=== PATIENT | female | born 1975 | race Caucasian/White ===

== ENCOUNTER 2024-02-11 18:33 | Outpatient (CLI) | payer SELFPAY | END 2024-02-11 23:59 | disposition critical access hospital (66) | LOC: EMS 18:33 | DX: E11.649 Type 2 diabetes mellitus with hypoglycemia without coma (principal) | CPT/HCPCS: A0425; A0429 ==

== ENCOUNTER 2024-02-11 18:48 | Observation (INO) | payer SELFPAY ==
[2024-02-11 19:33] LABS: BASOPHILS # (AUTO) 0.1 10^3/uL (0.0-0.1); EOSINOPHILS # (AUTO) 0.1 10^3/uL (0.0-0.7); HCT - HEMATOCRIT 47.4 % (37.0-47.0); HGB - HEMOGLOBIN 15.2 g/dL (12.0-16.0); LYMPHOCYTES # (AUTO) 1.2 10^3/uL (1.5-3.5); LYMPHOCYTES % (AUTO) 22.8 %; MEAN CORPUSCULAR HEMOGLOBIN 31.1 pg (27.0-31.0); MEAN CORPUSCULAR HGB CONC 32.1 g/dL (32.0-36.0); MEAN CORPUSCULAR VOLUME 97.1 fL (81.0-99.0); MEAN PLATELET VOLUME 10.4 fL (7.9-10.8); MONOCYTES # (AUTO) 0.3 10^3/uL (0.0-1.0); MONOCYTES % (AUTO) 5.9 %; NEUTROPHILS # (AUTO) 3.5 10^3/uL (1.5-6.6); NEUTROPHILS % (AUTO) 68.9 %; PLT - PLATELET COUNT 193 10^3/uL (130-450); RED BLOOD COUNT 4.88 10^6/uL (4.20-5.40); RED CELL DISTRIBUTION WIDTH 12.4 % (12.0-15.0); WHITE BLOOD COUNT 5.1 x10^3/uL (4.8-10.8)
--- NOTE | 2024-02-11 19:44 | ED Physician Documentation ---
History of Present Illness - Stated complaint Stated Complaint: LOW BLOOD SUGAR - Chief complaint Chief Complaint: General - Additonal information Additional information: 48-year-old female with past medical significant for TIA, hypertension, recent diagnosis diabetes presents with slurred speech and facial numbness. Diagnosed with TIA and evaluated at [facility] 2 weeks ago. At that time she was diagnosed as being diabetic and started on metformin as well as glipizide. Also reports that she started her Sitagliptin last night. Today while at [facility] she became acutely confused with slurred speech and facial numbness. EMS reported that she had a blood sugar of 62. She received an ampule of dextrose with complete resolution of her symptoms. Family who is present deny any facial droop or other focal or lateralizing neurologic deficits. Review of Systems Constitutional: denies: Fever Eyes: denies: Loss of vision Ears: denies: Loss of hearing Nose: denies: Rhinorrhea / runny nose Throat: denies: Dental pain / toothache Cardiac: denies: Chest pain / pressure Respiratory: denies: Dyspnea GI: denies: Abdominal Pain : denies: Dysuria Skin: denies: Rash Musculoskeletal: denies: Neck pain Neurologic: reports: Generalized weakness, Numbness PD PAST MEDICAL HISTORY - Past Medical History Past Medical History: Yes Neuro: TIA Endocrine/Autoimmune: Type 2 diabetes - Past Surgical History Past Surgical History: Yes - Allergies Allergies/Adverse Reactions: Allergies Allergy/AdvReac Type Severity Reaction Status Date / Time cephalexin [From Keflex] Allergy Unknown Verified 02/11/24 19:11 - Social History Does the pt smoke?: No Smoking Status: Never smoker Does the pt drink ETOH?: No Does the pt have substance abuse?: No - Immunizations Immunizations are current?: Yes - POLST Patient has POLST: No PD ED PE NORMAL - Vitals Vital signs reviewed: Yes - General General: Alert and oriented X 3, No acute distress, Well developed/nourished - HEENT HEENT: Atraumatic, PERRL, EOMI, Ears normal, Moist mucous membranes, Pharynx benign - Neck Neck: Supple, no meningeal sign, No bony TTP, No adenopathy, Thyroid normal, No JVD, No bruit, C-Spine cleared by NEXUS criteria - Cardiac Cardiac: RRR, No gallop, Strong equal pulses - Respiratory Respiratory: No respiratory distress, Clear bilaterally - Abdomen Abdomen: Normal bowel sounds, Non tender - Female Female : Deferred - Rectal Rectal: Deferred - Back Back: No CVA TTP - Derm Derm: Normal color - Extremities Extremities: No deformity, No tenderness to palpate, No edema, No calf tenderness / cord - Neuro Neuro: Alert and oriented X 3, 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 Relevant findings are: Sinus rhythm with rate 93 bpm. Normal axis. Normal PA, QRS intervals. QTc borderline at 4 7 5 ms. Right bundle branch block morphology. - Labs Labs: Laboratory Tests 02/11/24 02/11/24 02/11/24 19:29 19:29 21:21 WBC 5.1 RBC 4.88 Hgb 15.2 Hct 47.4 H MCV 97.1 MCH 31.1 H MCHC 32.1 RDW 12.4 Plt Count 193 MPV 10.4 Neut # (Auto) 3.5 Lymph # (Auto) 1.2 L [place] # (Auto) 0.3 Eos # (Auto) 0.1 Baso # (Auto) 0.1 Absolute Nucleated RBC 0.00 Nucleated RBC % 0.0 Sodium 139 Potassium 4.2 Chloride 103 Carbon Dioxide 25 Anion Gap 11.0 BUN 14 Creatinine 0.9 Estimated GFR (MDRD) 67 L Glucose 76 POC Whole Bld Glucose 96 Calcium 9.8 Total Bilirubin 0.8 AST 38 ALT 46 Alkaline Phosphatase 83 Troponin I High Sens < 2.3 L Total Protein 7.4 Albumin 4.3 Globulin 3.1 Albumin/Globulin Ratio 1.4 Lipase 188 H Ethyl Alcohol < 10.0 PD Medical Decision Making - ED course Complexity details: reviewed results, d/w pmo consultant ED course: 48-year-old female presents after episode of slurred speech, facial numbness and low-normal glucose of 62. Recently diagnosed as diabetic during an evaluation for transient ischemic attack at [facility]. Started on metformin twice daily as well as glipizide. Also reported that last night she started her first dose of Sitagliptin. Today had an episode of facial numbness and slurred speech that resolved with dextrose given via EMS. Afebrile, he medically stable arrival to the emergency department. No focal lateralizing neurologic deficits appreciated. Patient otherwise asymptomatic. Follow your blood sugars closely and while they did respond to p.o. intake they did seem to trend lower on repeat. Given that she is on a sulfonylurea I discussed her care with the hospitalist service who graciously agreed to hospitalize for further evaluation and treatment. Departure - Departure Disposition: [facility] DC/[facility] Clinical Impression: Hypoglycemia Forms: PCP List
[2024-02-11 19:56] LABS: TROPONIN I HIGH SENSITIVITY < 2.3 ng/L (2.3-14.8)
[2024-02-11 20:19] LABS: ALBUMIN 4.3 g/dL (3.2-5.5); ALBUMIN/GLOBULIN RATIO 1.4 (1.0-2.2); ALKALINE PHOSPHATASE 83 IU/L (42-121); ALT ALANINE AMINOTRANSFERASE 46 IU/L (10-60); AST ASPARTATE AMINOTRANSFERASE 38 IU/L (10-42); BILIRUBIN,TOTAL 0.8 mg/dL (0.2-1.0); BUN - BLOOD UREA NITROGEN 14 mg/dL (6-20); CALCIUM 9.8 mg/dL (8.5-10.3); CARBON DIOXIDE - CO2 25 mmol/L (21-32); CHLORIDE 103 mmol/L (101-111); CREATININE 0.9 mg/dL (0.6-1.3); ETOH - ETHANOL < 10.0 mg/dL; GFR - MDRD 67 (>89); GLUCOSE 76 mg/dL (74-104); LIPASE 188 U/L (11-82); POTASSIUM 4.2 mmol/L (3.5-4.5); SODIUM 139 mmol/L (135-145); TOTAL PROTEIN 7.4 g/dL (6.4-8.9)
--- NOTE | 2024-02-11 20:48 | CT Report ---
PROCEDURE: Head WO INDICATIONS: slurred speach TECHNIQUE: Noncontrast 4.5 mm thick angled axial sections acquired from the foramen magnum to the vertex. For r adiation dose reduction, the following was used: automated exposure control, adjustment of mA and/or kV according to patient size. COMPARISON: None. FINDINGS: Image quality: Diagnostic. CSF spaces: Basal cisterns are patent. No extra-axial fluid collections. Ventricles are normal in size and shape. Brain: No midline shift. No intracranial masses or hemorrhage. Lou-white matter interface is norm al. Skull and face: Calvarium and visualized facial bones are intact, without suspicious lesions. Sinuses: Left maxillary sinus mucous retention cyst. Other paranasal sinuses and mastoids are clear. IMPRESSION: No acute intracranial pathology. Reviewed by: Ortega De Jesus MD on 02/11/2024 8:47 PM PDT Approved by: Ortega De Jesus MD on 02/11/2024 8:47 PM PDT Station ID: [id number]
[2024-02-11] MEDS: HYDROmorphone 1 MG/ML CARPUJECT IVP STA (22:03)
--- NOTE | 2024-02-11 23:30 | HISTORY & PHYSICAL EXAMINATION ---
Chief Complaint - Chief Complaint Chief Complaint: weakness History of Present Illness - Admitted From Admitted From:: home - History Obtained From History obtained from: patient and chart review Exam Limitations: telemedicine - History of Present Illness HPI Comment/Other: Ms Thakkar is a 48 yo F with history of HTN, recently diagnosed with TIA and new diagnosis DM II at [facility] approximately 10 days ago. She had a CT scan and MRI brain that were unremarkable at that time, her CTA had some findings concerning for Garcia Garcia and she has an appointment with neurosurgery for consultation next week. She was started on glipizide 10 mg BID and metformin 1000 mg BID last week, she was told after ~7 days she can start semaglutide, and she took the first dose last night. Today while at [facility] she became acutely confused with slurred speech and facial numbness, lasted ~10-15 min. EMS reported blood sugar of 62. She received an amp of dextrose and her symptoms resolved entirely. She states that she felt like she had some spots in her peripheral vision earlier, but her glucose was in the 70s and symptoms resolved after she had a sandwich. Denies any ongoing neurologic complaints at this time. She states her sugars last week were in the 300s, HA1c ~11%. Current meds: ASA 81 mg daily, Losartan 50 mg daily, Glipizide 10 mg BID AC and Metformin 1000 mg BID History - Past Medical History Neuro: reports: TIA Endocrine/Autoimmune: reports: Type 2 diabetes MRSA Hx?: No - POLST Patient has POLST: No Meds/Allgy - Allergies Allergies/Adverse Reactions: Allergies Allergy/AdvReac Type Severity Reaction Status Date / Time cephalexin [From Keflex] Allergy Unknown Verified 02/11/24 19:11 Review of Systems - Constitutional Constitutional: reports: Fatigue, Weakness, Weight loss (9 lbs lost last week). denies: Fever, Chills, Malaise - Eyes Eyes: reports: Spots in vision (earlier today when glucose was low, now resolved) - Cardiovascular Cariovascular: denies: Palpitations, Chest pain - Respiratory Respiratory: denies: Cough, Sputum production, Wheezing - Gastrointestinal Gastrointestinal: reports: Diarrhea (2 days ago). denies: Abdominal pain, Constipation, Nausea, Vomiting - Genitourinary Genitourinary: denies: Dysuria, Frequency - Integumentary Integumentary: denies: Rash - Neurological Neurological: reports: Focal weakness (right hand, resolved) Exam - Vital Signs Reviewed Vital Signs: Yes Vital Signs: Vital Signs x48h Temp Pulse Resp BP Pulse Ox 02/11/24 22:00 87 17 139/66 H 98 02/11/24 20:54 95 18 144/93 H 97 02/11/24 19:28 94 18 171/87 H 95 02/11/24 19:11 36.8 C 86 16 171/87 H 99 - Physical Exam General Appearance: positive: No acute distress, Alert Respiratory: positive: No respiratory distress Skin: positive: Color nml, No rash Extremities: positive: Full ROM Neurologic/Psychiatric: positive: Oriented x3, CN's nml (2-12), Sensation nml, Mood/affect nml. negative: Weakness, Facial droop, Slurred/abnml speech Conclusion/Plan - Lab Results Lab results reviewed: Yes Fish Bones: 02/11/24 19:29 02/11/24 19:29 - Diagnostic Imaging Results Diagnostic Imaging Results: positive: Final report reviewed - Other Other Results/Comments: Assessment/Plan: Hypoglycemia DM II, new diagnosis ~10 days ago -With neurological manifestations - resolved with improved blood glucose -S/p MRI brain last week with similar symptoms -CT head today no acute intracranial findings -Likely due to rapid decrease in blood sugars with multiple medications: Glipizide 10 mg BID, Metformin 1000 mg BID, first dose of semaglutide last night -Patient has also been following a very tight and restricted diabetic diet, suspect calorie deficit -Reports ~9 lbs weight loss in the past week -Monitor blood sugars closely, hold medications for now HTN -Continue Losartan Hx TIA -Continue ASA 81 mg daily Admit for observation. Full code SCDs
[2024-02-11] MEDS ORDERED: ACETAMINOPHEN 325 MG TABLET PO PRN (23:32)
[2024-02-11] MEDS ORDERED: SODIUM CHLORIDE FLUSH 0.9% 10 ML SYRINGE IVP PRN (23:32)
[2024-02-11] MEDS ORDERED: ONDANSETRON 4 MG/2 ML VIAL IVP PRN (23:32)
[2024-02-11] MEDS: DEXTROSE 40% GEL 37.5 GM TUBE PO ONE ×2 (23:45)
[2024-02-12] MEDS: SODIUM CHLORIDE FLUSH 0.9% 10 ML SYRINGE IVP SCH (01:14)
[2024-02-12 07:52] LABS: BILIRUBIN,URINE NEGATIVE (NEGATIVE); GLUCOSE, URINE (UA) NEGATIVE (NEGATIVE); KETONES,URINE (UA) NEGATIVE (NEGATIVE); LEUKOCYTE ESTERASE, URINE NEGATIVE (NEGATIVE); NITRITE,URINE NEGATIVE (NEGATIVE); OCCULT BLOOD,URINE NEGATIVE (NEGATIVE); PH,URINE 5.5 PH (5.0-7.5); PROTEIN,URINE NEGATIVE (NEGATIVE); UROBILINOGEN,URINE 0.2 (NORMAL) E.U./dL (NORMAL)
[2024-02-12 07:56] LABS: CLARITY,URINE CLEAR (CLEAR)
[2024-02-12] MEDS: INSULIN LISPRO 300 UNIT/3 ML PEN SUBQ SCH (07:58)
[2024-02-12] MEDS: LOSARTAN 50 MG TABLET PO SCH (08:10)
[2024-02-12] MEDS: ASPIRIN EC 81 MG TABLET PO SCH (08:10)
--- NOTE | 2024-02-12 11:24 | PROVIDER PROGRESS NOTE ---
Subjective - Prog Note Date Prog Note Date: 02/12/24 Prog Note Time: 11:15 - Subjective Pt reports feeling: Improved Subjective: Complicated course recently. 10 days ago was at the emergency department at [facility] for presumed TIA. At the time of presentation to [facility] her blood pressure was 222/100. Workup at that time included a CTA of her head, CTA of head and neck, and MRI of the brain. There was some question about moyamoya disease with narrowing of the bilateral internal carotid arteries. She denies any family history of genetic syndromes, no family history of aneurysms cerebral or otherwise. Her family history is not completely known however as she does not have family history on 1 grandparent on each side. In any event at the time that she was admitted for an observation stay at [facility] she did receive CT of the head, CTA of the head neck and MRI of the brain. Aside from the bilateral narrowing of the internal carotid arteries nothing was found. She was started on an aspirin, started on losartan 50 mg a day for blood pressure and discharged home on glipizide 10 mg twice daily and metformin 1000 mg twice daily this was in response to hemoglobin A1c of 11.2%. She is also been started on aspirin 81 mg a day which she continues to take. With regards to her new diagnosis of diabetes she has had polydipsia over the last several months. She was started on the above-mentioned medications and then about a week after starting these medications she started to take semaglutide 5 mg subcu weekly. She started this on Monday night and it was on Monday evening that she had an episode of hypoglycemia while picking up her glucometer at [facility]. That in turn led to an emergency department visit which in turn led to an observation stay here at our facility. With regards to her hypertension history in the past she had been on enalapril and atenolol but stopped taking them because they did not make her feel very good. She is unclear on which of these medications did not make her feel well. Current Medications - Current Medications Current Medications: Medications Acetaminophen (Acetaminophen 325 Mg Tablet) 650 mg PO Q4HR PRN PRN Reason: Pain 1 to 4, or Fever Aspirin (Aspirin Ec 81 Mg Tablet) 81 mg PO DAILY MIKAELA Last Admin: 02/12/24 08:10 Dose: 81 mg Insulin Human Lispro (Insulin Lispro 300 Unit/3 Ml Pen) 1 - 9 unit SUBQ 0800,1200,1700,2100 [facility]; Protocol Last Admin: 02/12/24 07:58 Dose: 1 unit Losartan Potassium (Losartan 50 Mg Tablet) 50 mg PO DAILY [facility] Last Admin: 02/12/24 08:10 Dose: 50 mg Ondansetron HCl (Ondansetron 4 Mg/2 Ml Vial) 4 mg IVP Q6HR PRN PRN Reason: Nausea / Vomiting Objective - Vital Signs/Intake & Output Vital Signs: Vital Signs x48h Temp Pulse Resp BP Pulse Ox 02/12/24 07:43 36.3 C L 81 16 131/81 H 99 02/12/24 05:21 36 C L 71 14 117/69 97 Intake & Output: Intake & Output 02/09/24 02/10/24 02/11/24 02/12/24 23:59 23:59 23:59 23:59 Intake Total 240 Balance 240 - Objective General Appearance: positive: No acute distress Eyes Bilateral: positive: Normal inspection ENT: positive: ENT inspection nml Neck: positive: Nml inspection Respiratory: positive: No respiratory distress, Breath sounds nml Cardiovascular: positive: Regular rate & rhythm Abdomen: positive: No distention Back: positive: Nml inspection Skin: positive: Color nml Extremities: positive: Full ROM, No pedal edema - Lab Results Fish Bones: 02/11/24 19:29 02/11/24 19:29 Other Labs: Lab Results x24hrs 02/12/24 02/11/24 02/11/24 Range/Units 07:34 21:21 19:29 WBC (4.8-10.8) x10^3/uL RBC (4.20-5.40) 10^6/uL Hgb (12.0-16.0) g/dL Hct (37.0-47.0) % MCV (81.0-99.0) fL MCH (27.0-31.0) pg MCHC (32.0-36.0) g/dL RDW (12.0-15.0) % Plt Count (130-450) 10^3/uL MPV (7.9-10.8) fL Neut # (Auto) (1.5-6.6) 10^3/uL Lymph # (Auto) (1.5-3.5) 10^3/uL [place] # (Auto) (0.0-1.0) 10^3/uL Eos # (Auto) (0.0-0.7) 10^3/uL Baso # (Auto) (0.0-0.1) 10^3/uL Absolute Nucleated RBC x10^3/uL Nucleated RBC % /100WBC Sodium 139 (135-145) mmol/L Potassium 4.2 (3.5-4.5) mmol/L Chloride 103 (101-111) mmol/L Carbon Dioxide 25 (21-32) mmol/L Anion Gap 11.0 (6-13) BUN 14 (6-20) mg/dL Creatinine 0.9 (0.6-1.3) mg/dL Estimated GFR (MDRD) 67 L (>89) Glucose 76 (74-104) mg/dL POC Whole Bld Glucose 134 H 96 (70 - 100) mg/dL Calcium 9.8 (8.5-10.3) mg/dL Total Bilirubin 0.8 (0.2-1.0) mg/dL AST 38 (10-42) IU/L ALT 46 (10-60) IU/L Alkaline Phosphatase 83 (42-121) IU/L Troponin I High Sens < 2.3 L (2.3-14.8) ng/L Total Protein 7.4 (6.4-8.9) g/dL Albumin 4.3 (3.2-5.5) g/dL Globulin 3.1 (2.1-4.2) g/dL Albumin/Globulin Ratio 1.4 (1.0-2.2) Lipase 188 H (11-82) U/L Urine Color Urine Clarity (CLEAR) Urine pH (5.0-7.5) PH Ur Specific [place] (1.002-1.030) Urine Protein (NEGATIVE) mg/dL Urine Glucose (UA) (NEGATIVE) mg/dL Urine Ketones (NEGATIVE) mg/dL Urine Occult Blood (NEGATIVE) Urine Nitrite (NEGATIVE) Urine Bilirubin (NEGATIVE) Urine Urobilinogen (NORMAL) E.U./dL Ur Leukocyte Esterase (NEGATIVE) Ur Microscopic Review Urine Culture Comments Ethyl Alcohol < 10.0 mg/dL 02/11/24 02/11/24 Range/Units 19:29 07:30 WBC 5.1 (4.8-10.8) x10^3/uL RBC 4.88 (4.20-5.40) 10^6/uL Hgb 15.2 (12.0-16.0) g/dL Hct 47.4 H (37.0-47.0) % MCV 97.1 (81.0-99.0) fL MCH 31.1 H (27.0-31.0) pg MCHC 32.1 (32.0-36.0) g/dL RDW 12.4 (12.0-15.0) % Plt Count 193 (130-450) 10^3/uL MPV 10.4 (7.9-10.8) fL Neut # (Auto) 3.5 (1.5-6.6) 10^3/uL Lymph # (Auto) 1.2 L (1.5-3.5) 10^3/uL [place] # (Auto) 0.3 (0.0-1.0) 10^3/uL Eos # (Auto) 0.1 (0.0-0.7) 10^3/uL Baso # (Auto) 0.1 (0.0-0.1) 10^3/uL Absolute Nucleated RBC 0.00 x10^3/uL Nucleated RBC % 0.0 /100WBC Sodium (135-145) mmol/L Potassium (3.5-4.5) mmol/L Chloride (101-111) mmol/L Carbon Dioxide (21-32) mmol/L Anion Gap (6-13) BUN (6-20) mg/dL Creatinine (0.6-1.3) mg/dL Estimated GFR (MDRD) (>89) Glucose (74-104) mg/dL POC Whole Bld Glucose (70 - 100) mg/dL Calcium (8.5-10.3) mg/dL Total Bilirubin (0.2-1.0) mg/dL AST (10-42) IU/L ALT (10-60) IU/L Alkaline Phosphatase (42-121) IU/L Troponin I High Sens (2.3-14.8) ng/L Total Protein (6.4-8.9) g/dL Albumin (3.2-5.5) g/dL Globulin (2.1-4.2) g/dL Albumin/Globulin Ratio (1.0-2.2) Lipase (11-82) U/L Urine Color YELLOW Urine Clarity CLEAR (CLEAR) Urine pH 5.5 (5.0-7.5) PH Ur Specific [place] 1.020 (1.002-1.030) Urine Protein NEGATIVE (NEGATIVE) mg/dL Urine Glucose (UA) NEGATIVE (NEGATIVE) mg/dL Urine Ketones NEGATIVE (NEGATIVE) mg/dL Urine Occult Blood NEGATIVE (NEGATIVE) Urine Nitrite NEGATIVE (NEGATIVE) Urine Bilirubin NEGATIVE (NEGATIVE) Urine Urobilinogen 0.2 (NORMAL) (NORMAL) E.U./dL Ur Leukocyte Esterase NEGATIVE (NEGATIVE) Ur Microscopic Review NOT INDICATED Urine Culture Comments NOT INDICATED Ethyl Alcohol mg/dL ABX Reporting Has patient been on IV antibiotics over the past 48 hours?: No Assessment/Plan - Problem List (1) Hypoglycemia Impression: New onset of diabetes with a hemoglobin A1c in outside hospital 11.2%. Unfortunately now seems to be hypoglycemic with medications and dietary changes. She states she has lost 9 pounds in the last week or so probably not related to her semaglutide use possibly related to her diabetes medication. She needs diabetes education which we have asked to be done here in the hospital today. I will adjust her medications. We will discontinue the glipizide. Will decrease the metformin to 500 mg twice daily. She will continue on the semaglutide. She has a dosing regimen set at 5 mg weekly for 4 weeks then 10 mg weekly for 4 weeks then 15 mg weekly for 4 weeks. I would want her to check it in the outpatient environment with a primary care doctor. While Admitted her [id number] blood glucose was 96 yesterday evening and this morning 134, this was before breakfast. She has been given moderate dose sliding scale insulin. She received 1 unit in response to a blood sugar of 134 this morning. Her family history is significant for father with diabetes and end-stage renal disease who is at the age of 53. I think it is very important to control this patient's diabetes as well as incidentally her hypertension to protect her kidneys. At this time she shows a GFR of 67 on her admission labs. She has an appointment in 3 days with a new PCP associated with [facility]. I think this is a fine idea. Obviously would recommend repeat A1c in 3 months. (2) Hypertension Impression: Blood pressure looks to be relatively well-controlled on losartan 50 mg a day. She has had readings of 160/78, 143/81, 117/69, 131/81, and 125/75 since she has been here. Will defer to primary care doctor for further evaluation and treatment of her hypertension. (3) TIA (transient ischemic attack) Impression: Symptoms yesterday were likely due to hypoglycemia and not TIA. Unclear what symptoms were due to 10 days ago. Agree with continuing aspirin 81 mg daily.
--- NOTE | 2024-02-12 12:56 | PHARMACY PROGRESS NOTE ---
- Best Possible Medication History Admit Date and Time: 02/11/24 8857 Processed by: Pharmacy Medications reviewed in ED?: No Medication History completed: Yes Patient Interview: Completed Secondary Source(s): Insurance records As the person ultimately responsible for medication therapy, providers are able to order a medication from an existing home medication list in [facility] via the "Reconcile Routine" prior to Confirmation of that medication by passport support associate. Such practice is discouraged except when the physician, in their clinical judgment, deems that a medical need exists for a medication without regard to previous use.
--- NOTE | 2024-02-12 14:47 | Discharge Plan ---
Discharge Plan Problem Reviewed?: Yes Disposition: Home, Self Care Condition: Good Diet: Diabetic Activity Restrictions: No Restrictions Shower Restrictions: No Driving Restrictions: No Instruction Topics: Log Blood Sugar, Hyperglycemia, Hypoglycemia, Blood Sugar Check, Diabetes Healthy Meals Health Concerns: Possible moyamoya disease: For now I think the best thing to do is take aspirin. You will need specialty evaluation but you need to be seen by primary care doctor first. High blood pressure: Keep taking your losartan. Do with the pharmacist said and take it tomorrow between noon and 3 and then the next day around bedtime as you like to do. If you can afford it you should get a blood pressure cuff and take your blood pressure at home. It would be nice to keep a log of that and your blood sugars. Diabetes: Check your blood sugar in the morning before breakfast and keep a log of this. Some random blood sugars 2 hours after a meal, say about 2 hours after lunch, would also be good. You do not have to do this every day. For your diabetes treatment, I would recommend that you stop the glipizide. Continue with the semaglutide medication every Monday. Remember that this medication causes your gut to not move as quickly so you may experience some constipation with this. Also remember it is important to engage in weightbearing exercise to help prevent loss of muscle mass. I think it is important to avoid empty calories when you are on the semaglutide because you will consume so many fewer calories per day you need to make every calorie count in terms of getting your body the nutrition needs. Health maintenance concerns: Get a mammogram! Get a Pap smear! I think Dr. Mora here at [facility] is really good at taking care of perimenopausal women and you might like her a lot. You also need your cholesterol checked and probably should have your thyroid checked as well. Thank you for trusting us with your care. We wish you only the best. Plan of Treatment: Stop Glipizide Keep taking metformin. keep taking semaglutide. Keep taking aspirin. Keep taking Losartan. Care Goals: control of diabetes and hypertension. A long and healthy life! Assessment: Medication induced hypoglycemia No Smoking: If you smoke, Please STOP! Call for help.
--- NOTE | 2024-02-12 14:56 | DISCHARGE SUMMARY ---
"Discharge Summary Admit Date: 02/11/24 Discharge Date: 02/12/24 Discharging Provider: Fatuma Domínguez PA-C Primary Care Provider: Un named MD at [facility]. Code Status: Attempt Resuscitation Condition at Discharge: Good Discharge Disposition: 01 Home, Self Care - DIAGNOSES Admission Diagnoses: Hypoglycemia with new diagnosis of diabetes -Hypertension History of TIA Discharge Diagnoses with Status of Each Condition: Diabetes mellitus with hyperglycemia. Recent admission overnight to [facility] At that time hemoglobin A1c was 11.2%. She was discharged to home on metformin at 1000 mg twice daily, glipizide 10 mg twice daily and subsequently started semaglutide 5 mg weekly through a compounding pharmacy. She started the semaglutide 3 days ago now. She was noted to be hypoglycemic in the field at 62 while at [facility] buying a glucometer. EMS had been called due to mental status changes and slurred speech and facial numbness . She was thus admitted to our facility overnight to monitor her for hypoglycemia in light of sulfonylurea use. Admission glucose on [facility] was 76. [id number] glucoses since being here in the hospital are 96, 134 before breakfast, and 200 before lunch. She has been placed on sliding scale insulin. Her metformin has been held since arriving here. Hypertension Recently started back on losartan 50 mg daily. Had previously many years ago been on enalapril and atenolol stopped taking these because they did not make her feel well. She is not sure which of these medications did not make her feel well. In any event while admitted here she was given her losartan. Her blood pressures were 160/78 at midnight. After that they were 143/81, 117/69, 131/81 and 125/78. History of TIAs. At a recent visit to [facility] with overnight stay she had a CT and a CTA of her head neck. There was some suggestion of narrowing of the bilateral internal carotid arteries leading to thoughts that she may have moyamoya disease. MRI of the brain on the morning of hospital day 2 was negative for any acute stroke and therefore she was discharged home. She is continuing on aspirin 81 mg daily. - HPI History of Present Illness: From admission H&P: Ms Thakkar is a 48 yo F with history of HTN, recently diagnosed with TIA and new diagnosis DM II at [facility] approximately 10 days ago. She had a CT scan and MRI brain that were unremarkable at that time, her CTA had some findings concerning for Garcia Garcia and she has an appointment with neurosurgery for consultation next week. She was started on glipizide 10 mg BID and metformin 1000 mg BID last week, she was told after ~7 days she can start semaglutide, and she took the first dose last night. Today while at [facility] she became acutely confused with slurred speech and facial numbness, lasted ~10-15 min. EMS reported blood sugar of 62. She received an amp of dextrose and her symptoms resolved entirely. She states that she felt like she had some spots in her peripheral vision earlier, but her glucose was in the 70s and symptoms resolved after she had a sandwich. Denies any ongoing neurologic complaints at this time. She states her sugars last week were in the 300s, HA1c ~11%. Current meds: ASA 81 mg daily, Losartan 50 mg daily, Glipizide 10 mg BID AC and Metformin 1000 mg BID - CONSULTS | PROCEDURES Procedures: CT head: No acute intracranial pathology. Result was reviewed with the patient. - HOSPITAL COURSE Hospital Course: Admitted through the emergency department with hypoglycemia which was symptomatic. Recent diagnoses of TIAs and started on aspirin. CTA of the head and neck done about 10 days ago at [facility] was suggestive of moyamoya disease. She will be seeing a primary care doctor in 3 days and from that point will be referred to neurology as needed. She was started on a diabetic diet. She was given diabetes teaching. Her blood sugars were elevated while she was here and she did receive some sliding scale insulin coverage. Her metformin and glipizide were held while here in the hospital. She is still under the influence of semaglutide. On the date of discharge she tolerated breakfast and lunch. Colo well did not have any hypoglycemia. She was counseled on outpatient care of diabetes. She received diabetes education from the life educator. She was discharged to home in stable and improved condition. - ALLERGIES Allergies/Adverse Reactions: Allergies Allergy/AdvReac Type Severity Reaction Status Date / Time cephalexin [From Keflex] Allergy Rash Verified 02/12/24 12:57 - MEDICATIONS Home Medications: Ambulatory Orders Medication Instructions Recorded Confirmed Aspirin Chewable [[place] 81 mg PO DAILY 02/12/24 02/12/24 Aspirin] Losartan [Cozaar] 50 mg PO QPM 02/12/24 02/12/24 Metformin HCl 1,000 mg PO BIDWM 02/12/24 02/12/24 Semaglutide [Wegovy] 0.5 mg PO Q7D 02/12/24 02/12/24 Vitamin B12 Sublingual Drops 5,000 mcg PO DAILY 02/12/24 02/12/24 - PHYSICAL EXAM AT DISCHARGE General Appearance: positive: No acute distress Eyes Bilateral: positive: Normal inspection ENT: positive: ENT inspection nml Neck: positive: Nml inspection Respiratory: positive: No respiratory distress, Breath sounds nml Cardiovascular: positive: Regular rate & rhythm Abdomen: positive: No distention Back: positive: Nml inspection Skin: positive: Color nml Extremities: positive: Full ROM, No pedal edema Neurologic/Psychiatric: positive: Oriented x3 - LABS Result Diagrams: 02/11/24 19:29 02/11/24 19:29 - QUALITY (Female Hip Fx Only) Was patient sent home on osteoporosis medication?: No - FOLLOW UP Follow Up: Primary care at [facility] on 02/15/2024 as scheduled. I have recommended to her that she follow-up with [facility] as she has an IUD in place that needs to be removed. It has been unable to be removed by family medicine in the past. I recommended to her that she get a mammogram I recommend that she get a Pap smear. - TIME SPENT Time Spent in Discharge (Minutes): 30"
[2024-02-12 16:40] VITALS: BP 177/79; O2SAT 95
[2024-02-13] MEDS ORDERED: LOSARTAN 50 MG TABLET PO SCH (13:00)
== END 2024-02-12 16:25 | disposition home or self-care (01) ==
LOC: ED 18:48 → MS2 23:32
PROVIDERS: ADMIT Student in an Organized Health Care Education/Training Program; ATTEND Physician Assistant Medical
DX: E11.649 Type 2 diabetes mellitus with hypoglycemia without coma (principal); I10 Essential (primary) hypertension; Z86.73 Personal history of transient ischemic attack (TIA), and cerebral infarction without residual deficits; Z79.84 Long term (current) use of oral hypoglycemic drugs; E11.65 Type 2 diabetes mellitus with hyperglycemia; E11.49 Type 2 diabetes mellitus with other diabetic neurological complication; R63.4 Abnormal weight loss; Z68.39 Body mass index [BMI] 39.0-39.9, adult
CPT/HCPCS: 36415; 70450; 80053; 81003; 82077; 83690; 84484; 85025; 93005; 99284; 99285; A9270; G0378; 81001; 87086